=== PATIENT | female | born 1950 | race Caucasian/White ===

== ENCOUNTER 2023-11-25 11:34 | Outpatient (CLI) | payer MEDICARE | END 2023-11-25 21:18 | disposition home or self-care (01) | LOC: SDS 11:34 | PROVIDERS: ATTEND Student in an Organized Health Care Education/Training Program | DX: M17.12 Unilateral primary osteoarthritis, left knee (principal) ==

== ENCOUNTER 2023-11-30 08:21 | Day surgery (SDC) | payer BC, MEDICARE ==
[2023-11-25 12:49] LABS: BASOPHILS % (AUTO) 0.7 % (0.0-2.0); EOSINOPHILS # (AUTO) 0.1 K/uL (0.0-0.4); HEMATOCRIT 42.4 % (36-48); HEMOGLOBIN 14.3 g/dL (12.0-16.0); LYMPHOCYTES # (AUTO) 2.1 K/uL (1.0-5.5); LYMPHOCYTES % (AUTO) 32.1 % (20.5-51.5); MEAN CORPUSCULAR HEMOGLOBIN 30 pg (27-31); MEAN CORPUSCULAR HGB CONC 34 % (32-36); MEAN CORPUSCULAR VOLUME 87 fL (79.0-98.0); MONOCYTES # (AUTO) 0.6 K/uL (0.0-1.0); MONOCYTES % (AUTO) 8.7 % (1.7-9.3); NEUTROPHILS # (AUTO) 3.8 K/uL (1.8-7.7); NEUTROPHILS % (AUTO) 57.5 % (40.0-70.0); PLATELET COUNT (AUTO) 315 K/uL (130-430); RED BLOOD CELL COUNT(AUTO) 4.85 MIL/uL (4.2-6.2); RED CELL DISTRIBUTION WIDTH 14.2 % (9.0-15.0); WHITE BLOOD COUNT (AUTO) 6.5 K/uL (4.8-10.8)
[2023-11-25 13:08] LABS: ALANINE AMINOTRANSFERASE 25 U/L (12-78); ALBUMIN 3.9 g/dL (3.4-4.8); ANION GAP 5 (5-15); ASPARTATE AMINOTRANSFERASE 27 U/L (10-37); CALCIUM 9.7 mg/dL (8.4-11.0); CARBON DIOXIDE 31 mmol/L (23-29); CHLORIDE 106 mmol/L (98-107); CREATININE 0.84 mg/dL (0.55-1.30); GLUCOSE 102 mg/dL (74-106); POTASSIUM 4.2 mmol/L (3.5-5.1); SODIUM SERUM 142 mmol/L (136-145); TOTAL BILIRUBIN 0.6 mg/dL (0.0-1.0); TOTAL PROTEIN, SERUM 7.7 g/dL (6.4-8.3); UREA NITROGEN, BLOOD 11 mg/dL (8-21)
[2023-11-25 13:19] LABS: PROTHROMBIN TIME 10.7 SECS (9.5-12.5)
[~2023-11-30] VITALS: Ht 162.6 cm; Wt 88.9 kg
[~2023-11-30 08:21] MED LIST: CEFAZOLIN SOD 2 GM in D5W 50 ML IV ONE; GABAPENTIN 300 MG CAPSULE PO ONE
[2023-11-30] MEDS ORDERED: ACETAMINOPHEN 500 MG TABLET ONE (08:35)
[2023-11-30] MEDS ORDERED: CELECOXIB 100 MG CAPSULE ONE (08:39)
[2023-11-30] MEDS ORDERED: SCOPOLAMINE HYDROBROMIDE 1 MG PATCH .72 H (TRANSDERM-SCOP) TD ONE (08:39)
[2023-11-30] MEDS ORDERED: oxyCODONE HCL 10 MG TAB.ER.12H PO ONE (08:39)
[2023-11-30] MEDS ORDERED: GABAPENTIN 300 MG CAPSULE ONE (08:40)
[2023-11-30] MEDS: CELECOXIB 100 MG CAPSULE PO ONE (09:29)
[2023-11-30] MEDS: ACETAMINOPHEN 500 MG TABLET PO ONE (09:29)
[2023-11-30] MEDS: SCOPOLAMINE HYDROBROMIDE 1 MG PATCH .72 H (TRANSDERM-SCOP) TD ONE (09:29)
[2023-11-30] MEDS ORDERED: oxyCODONE HCL 5 MG TABLET PO PRN ×2 (11:00)
[2023-11-30] MEDS ORDERED: HYDROmorphone 1 MG/ML INJ. CARTRIDGE IVP PRN ×5 (11:00→13:30)
[2023-11-30] MEDS ORDERED: traMADol HCL HCL 50 MG TABLET (ULTRAM) PO PRN (11:00)
[2023-11-30] MEDS ORDERED: LORATADINE 10 MG TABLET PO PRN (11:00)
[2023-11-30] MEDS ORDERED: ceFAZolin SODIUM 2 GM in D5W 50 ML IV SCH (11:15)
[2023-11-30] MEDS ORDERED: ONDANSETRON HCL 4 MG/2 ML VIAL IVP PRN (11:45)
[2023-11-30] MEDS ORDERED: BISACODYL 10 MG/SUPPOSITORY RC PRN (12:15)
[2023-11-30] MEDS ORDERED: LACTULOSE 20 GM/30 ML UDC PO PRN (12:15)
[2023-11-30] MEDS ORDERED: METOCLOPRAMIDE HCL 10 MG/2 ML VIAL IVP PRN ×2 (12:15→13:30)
[2023-11-30] MEDS ORDERED: DIPHENHYDRAMINE HCL 25 MG CAPSULE PO PRN (12:15)
[2023-11-30] MEDS ORDERED: LR 1,000 ML IV.SOLN IV ONE (12:20)
[2023-11-30] MEDS ORDERED: BUPIVACAINE /DEX PF 0.75% SPINAL 2 ML AMP INJ ONE (12:20)
[2023-11-30] MEDS ORDERED: NS IRRIG SOLN 1000 ML IR ONE (12:20)
[2023-11-30] MEDS ORDERED: MIDAZOLAM HCL 2 MG/2 ML VIAL (VERSED) ONE (12:20)
[2023-11-30] MEDS ORDERED: BUPIVACAINE /PF 0.25% 30 ML VIAL INJ ONE (12:20)
[2023-11-30] MEDS ORDERED: fentaNYL CITRATE/PF 100 MCG/2 ML AMP ONE (12:20)
[2023-11-30] MEDS ORDERED: VANCOMYCIN HCL 1000 MG/VIAL IV ONE (12:20)
[2023-11-30] MEDS ORDERED: NS IRRIG SOLN 5000 ML IR ONE (12:20)
[2023-11-30] MEDS ORDERED: DEXAMETHASONE SOD PHOSPHATE 4 MG/ML VIAL ONE (12:20)
[2023-11-30] MEDS ORDERED: WATER FOR IRRIGATION,STERILE 1,000 ML IRRIG.SOLN IR ONE (12:20)
[2023-11-30] MEDS ORDERED: ONDANSETRON HCL 4 MG/2 ML VIAL ONE (12:20)
[2023-11-30] MEDS ORDERED: PROPOFOL 200MG/ 20ML VIAL (DIPRIVAN) IV ONE (12:20)
[2023-11-30] MEDS: oxyCODONE HCL 10 MG TAB.ER.12H PO ONE (12:20)
[2023-11-30] MEDS ORDERED: hydrALAZINE HCL 20 MG/ML VIAL IVP PRN (13:30)
[2023-11-30] MEDS ORDERED: LABETALOL 100 MG/ 20ML VIAL IVP PRN (13:30)
[2023-11-30] MEDS ORDERED: LR 1,000 ML IV SCH (13:30)
[2023-11-30] MEDS ORDERED: MEPERIDINE HCL/PF 25 MG/ML DISP.SYRIN IVP PRN (13:30)
[2023-11-30] MEDS ORDERED: ACETAMINOPHEN 500 MG TABLET PO SCH (14:00)
[2023-11-30] MEDS ORDERED: KETOROLAC TROMETHAMINE 10 MG TABLET (TORADOL) PO SCH (14:00)
[2023-11-30 14:07] VITALS: PULSE 82; RESP 18; TEMP 98.6; O2SAT 96
[2023-11-30 14:23] VITALS: BP_SYST 136
[2023-11-30] MEDS ORDERED: traMADol HCL HCL 50 MG TABLET (ULTRAM) PO ONE (15:00)
[2023-11-30] MEDS ORDERED: TAMSULOSIN HCL 0.4 MG CAP PO ONE (15:10)
[2023-11-30] MEDS: TAMSULOSIN HCL 0.4 MG CAP ONE (15:16)
[2023-11-30] MEDS ORDERED: SENNOSIDES/DOCUSATE SODIUM 1 TAB TABLET(SENOKOT-S) PO SCH (21:00)
[2023-12-01] MEDS ORDERED: TAMSULOSIN HCL 0.4 MG CAP PO SCH (09:00)
[2023-12-01] MEDS ORDERED: APIXABAN 2.5 MG TABLET PO SCH (09:00)
[2023-12-01] MEDS ORDERED: CELECOXIB 200 MG CAPSULE PO SCH (11:00)
== END 2023-11-30 17:40 | disposition home or self-care (01) ==
LOC: SDS 08:21 → SMU 08:23 → SDS 17:40
PROVIDERS: ATTEND Student in an Organized Health Care Education/Training Program
DX: M17.12 Unilateral primary osteoarthritis, left knee (principal); M25.762 Osteophyte, left knee; M25.562 Pain in left knee; I10 Essential (primary) hypertension; E66.9 Obesity, unspecified; K21.9 Gastro-esophageal reflux disease without esophagitis; Z68.33 Body mass index [BMI] 33.0-33.9, adult; Z90.710 Acquired absence of both cervix and uterus; Z79.899 Other long term (current) drug therapy; Z85.3 Personal history of malignant neoplasm of breast; Z86.718 Personal history of other venous thrombosis and embolism; Z86.711 Personal history of pulmonary embolism; Z80.9 Family history of malignant neoplasm, unspecified
CPT/HCPCS: 80053; 85025; 85610; 85730; 87081; 36415; 71046; 27447; 97162; 64447; 73560; 97110; 97530; 97116; 88305; 88311; J3490 ×2; J0690; J0696; J1100; J2250; J2405; J2704; J3370; J3010; J7060 ×2; J7120; C1776 ×3